=== PATIENT | female | born 1990 | race African-American/Black ===

== ENCOUNTER 2019-08-27 13:42 | Emergency (ER) | payer SELFPAY | END 2019-08-27 14:16 | disposition left against medical advice (07) | LOC: ANHED 09-22 08:49 | DX: Z53.21 Procedure and treatment not carried out due to patient leaving prior to being seen by health care provider (principal) | CPT/HCPCS: 99199; A9270 ==

== ENCOUNTER 2020-04-22 12:05 | Outpatient (CLI) | payer MEDICAID, SELFPAY ==
[2020-04-22 12:28] LABS: Basophils Absolute Auto 0.1 K/mm3 (0.0-0.1); Basophils Percent Auto 1.2 % (0.2-1.2); Eosinophils Absolute Auto 0.1 K/mm3 (0-0.3); Eosinophils Percent Auto 2.2 % (0-4.4); Hematocrit 36.3 % (37.0-47.0); Hemoglobin 12.8 g/dL (12.0-15.0); Immature Granulocyte Absolute 0.01 K/mm3 (0.00-0.031); Immature Granulocyte Percent A 0.2 % (0-0.5); Lymphocytes Absolute Auto 1.82 K/mm3 (0.9-3.2); Lymphocytes Percent Auto 44.9 % (18.3-44.2); Mean Corpuscular HGB Conc 35.3 g/dl (32-36); Mean Corpuscular Hemoglobin 32.1 pg (26-34); Monocytes Absolute Auto 0.6 K/mm3 (0.1-0.6); Monocytes Percent Auto 14.6 % (2.6-8.5); Neutrophils Absolute Auto 1.5 K/mm3 (1.3-6.7); Neutrophils Percent Auto 36.9 % (45.5-73.1); Platelet Count Result 203 k/mm3 (150-375); Red Blood Count 3.99 M/mm3 (4.2-5.4); Red Cell Distribution Width 11.5 % (11.5-14.5); White Blood Count 4.1 K/mm3 (4.5-10.0)
[2020-04-22 12:39] LABS: Alanine Aminotransferase 24 U/L (4-35); Albumin Level 4.5 g/dL (3.5-5.1); Alkaline Phosphatase 64 U/L (38-126); Anion Gap 7 mmol/L (8-16); Aspartate Amino Transferase 27 U/L (14-36); Bilirubin,Total 0.4 mg/dL (0.2-1.3); Blood Urea Nitrogen 12 mg/dL (7-17); Calcium 9.1 mg/dL (8.4-10.2); Carbon Dioxide 27 mmol/L (22-30); Chloride 104 mmol/L (98-107); Cholesterol 192 mg/dL (0-200); Estimated Glomerular Filt Rate > 60; Glucose 86 mg/dL (65-105); HDL Direct 72 mg/dL; Potassium 4.2 mmol/L (3.4-5.0); Sodium 138 mmol/L (137-145); Triglycerides 61 mg/dL (<150)
[2020-04-22 12:50] LABS: LDL Cholesterol Direct 89 mg/dL
[2020-04-22 13:09] LABS: Thyroid Stimulating Hormone 0.433 uIU/mL (0.465-4.680)
[2020-04-24 09:05] LABS: Free T4 Free Thyroxine 1.21 ng/mL (0.78-2.19)
== END 2020-04-22 12:06 | disposition home or self-care (01) ==
LOC: ANHLAB 04-24 08:20
PROVIDERS: Visit Provider Obstetrics & Gynecology
DX: Z13.29 Encounter for screening for other suspected endocrine disorder (principal); Z13.0 Encounter for screening for diseases of the blood and blood-forming organs and certain disorders involving the immune mechanism; Z13.228 Encounter for screening for other metabolic disorders; Z20.2 Contact with and (suspected) exposure to infections with a predominantly sexual mode of transmission; Z13.6 Encounter for screening for cardiovascular disorders
CPT/HCPCS: 36415; 80053; 80061; 82306; 84439; 84443; 85025

== ENCOUNTER 2021-03-09 15:09 | Emergency (ER) | payer BC, SELFPAY ==
[2021-03-09 15:20] VITALS: BP 136/94; PULSE 97; RESP 18; TEMP 36.6; O2SAT 100
--- NOTE | 2021-03-09 15:22 | ED.GENADULT ---
HPI - General Adult General Chief complaint: Upper Respiratory Infection Stated complaint: Loss of sense of smell Time Seen by Provider: 03/09/21 15:22 Source: patient Mode of arrival: ambulatory Limitations: no limitations History of Present Illness HPI narrative: 30-year-old female patient presents to the [facility] with complaints of loss of smell and dull taste that started today. Patient states she started having some congestion and runny nose and thought it was her allergies. Start taking some allergy medication. Patient is fully vaccinated last vaccine was in early January. Denies coming into contact with anybody with Covid that she is aware of. Denies fever, chest pain, shortness of breath or any severe symptoms. Related Data Allergies Allergy/AdvReac Type Severity Reaction Status Date / Time No Known Allergies Allergy Verified 03/09/21 15:20 Review of Systems Review of Systems: CONSTITUTIONAL: Denies fever, chills, or sweats. EYES: Denies visual changes, redness, or discharge. ENT: Denies rhinorrhea, congestion, sore throat, or otalgia. CARDIOVASCULAR: Denies chest pain, palpitations, or edema. RESPIRATORY: Denies cough or dyspnea. GASTROINTESTINAL: Denies abdominal pain, nausea, vomiting, or diarrhea. GENITOURINARY: Denies dysuria or hematuria. SKIN: Denies rash or itching. MUSCULOSKELETAL: Denies back pain, joint pain, or myalgia. NEUROLOGIC: Denies headache, numbness, or weakness. PSYCHIATRIC: Denies anxiety or depression. [facility] Past Medical History Medical History ASCUS of cervix with negative high risk HPV CKD (chronic kidney disease) Condyloma acuminatum HSV (herpes simplex virus) infection Type I and II Vaginal delivery x2 Surgical History Surgical History [place] teeth extracted Family History Family History Grandparent Hypertension Family history of coronary artery disease Diabetes mellitus Social History Social History Smoking status: Current every day smoker Second hand tobacco smoke exposure: No Alcohol intake: current Substance use type: marijuana Comments At the time of my signature I agree with nursing past medical history, surgical, social, and family history. There is no relevant family history pertinent to the presenting complaint. Exam Narrative: GENERAL: Well-appearing, well-nourished, and in no acute distress. HEAD: Normocephalic, atraumatic. EYES: PERRLA and EOMI. ENT: Nares clear, no rhinorrhea or epistaxis. Mucous membranes moist. Bilateral TMs are clear with no erythema or foreign bodies in the canal. Posterior pharynx no erythema, tonsillar Gayle, exudates or lesions present. NECK: Supple. No lymphadenopathy CHEST: Clear to auscultation. No respiratory distress. HEART: Regular rate and rhythm. No murmur heard. Normal peripheral pulses. ABDOMEN: Soft, nontender, nondistended, normal active bowel sounds. EXTREMITIES: Normal range of motion. No edema. SKIN: Warm, dry, no rash. NEURO: No focal deficits. Alert and oriented x3. Course Vital Signs Vital signs: Vital Signs Temperature 36.6 C 03/09/21 15:20 Pulse Rate 97 03/09/21 15:20 Respiratory Rate 18 03/09/21 15:20 Blood Pressure 136/94 H 03/09/21 15:20 Pulse Oximetry 100 03/09/21 15:20 Temperature 36.6 C 03/09/21 15:20 Pulse Rate 97 03/09/21 15:20 Respiratory Rate 18 03/09/21 15:20 Blood Pressure 136/94 H 03/09/21 15:20 Pulse Oximetry 100 03/09/21 15:20 Vital signs reviewed. The patient has been informed that they may have pre-hypertension or Hypertension based on a BP reading in the department. I recommend that the patient call the primary care provider listed on their discharge instructions or a physician of their choice this week to arrange
== END 2021-03-09 15:48 | disposition home or self-care (01) ==
PROVIDERS: Emergency Provider Nurse Practitioner Family
DX: U07.1 COVID-19 (principal)
CPT/HCPCS: 87426; 99212; C9803; G0463

== ENCOUNTER 2021-03-16 11:20 | Emergency (ER) | payer BC, SELFPAY ==
[2021-03-16 11:33] VITALS: BP 128/95; PULSE 91; RESP 18; TEMP 36.4; O2SAT 100
--- NOTE | 2021-03-16 12:06 | ED.SKABFB ---
HPI - Skin/Abscess/Foreign Bdy General Chief complaint: Skin/Abscess/Foreign Body Stated complaint: rash Source: patient Mode of arrival: ambulatory Limitations: no limitations History of Present Illness HPI narrative: Patient is a 30-year-old female who presents complaining of rash to right upper buttocks/lower back x1 day. She reports pain and burning. She denies fever, chills or other skin symptoms. Patient is Covid positive times day 10. She denies Covid related complaints at this time. MD complaint: rash Related Data Home Medications Medication Instructions Recorded Confirmed acyclovir 400 mg PO BID 03/16/21 03/16/21 Allergies Allergy/AdvReac Type Severity Reaction Status Date / Time No Known Allergies Allergy Verified 03/16/21 12:05 Review of Systems Review of Systems: CONSTITUTIONAL: Denies fever, chills, or sweats. EYES: Denies visual changes, redness, or discharge. ENT: Denies rhinorrhea, congestion, sore throat, or otalgia. CARDIOVASCULAR: Denies chest pain, palpitations, or edema. RESPIRATORY: Denies cough or dyspnea. GASTROINTESTINAL: Denies abdominal pain, nausea, vomiting, or diarrhea. GENITOURINARY: Denies dysuria or hematuria. SKIN: Rash to right lower back/ upper buttocks MUSCULOSKELETAL: Denies back pain, joint pain, or myalgia. NEUROLOGIC: Denies headache, numbness, dizziness, or weakness. PSYCHIATRIC: Denies anxiety or depression. [facility] Past Medical History Medical History ASCUS of cervix with negative high risk HPV CKD (chronic kidney disease) Condyloma acuminatum HSV (herpes simplex virus) infection Type I and II Vaginal delivery x2 Surgical History Surgical History [place] teeth extracted Family History Family History Grandparent Hypertension Family history of coronary artery disease Diabetes mellitus Social History Social History Smoking status: Current every day smoker Second hand tobacco smoke exposure: No Alcohol intake: current Substance use type: marijuana Comments At the time of signature, I have reviewed and agree with nursing past medical, surgical, social, and family history unless otherwise noted. Please see nursing chart for further information. There is no relevant family history pertinent to the presenting complaint. Exam Narrative: GENERAL: Well-appearing, well-nourished, and in no acute distress. HEAD: Normocephalic, atraumatic. EYES: EOMI. No redness or drainage. Conjunctiva are normal. ENT: Mucous membranes pink and moist. CHEST: No respiratory distress. HEART: Regular rate and rhythm. EXTREMITIES: Normal range of motion. SKIN: Area of vesiculopapular rash to right lower back/upper buttocks NEURO: No focal deficits. Alert and oriented x3. Gait steady. PSYCH: Normal affect. No signs of depression or anxiety. Course Vital Signs Vital signs: Vital Signs Temperature 36.4 C 03/16/21 11:33 Pulse Rate 91 03/16/21 11:33 Respiratory Rate 18 03/16/21 11:33 Blood Pressure 128/95 H 03/16/21 11:33 Pulse Oximetry 100 03/16/21 11:33 Temperature 36.4 C 03/16/21 11:33 Pulse Rate 91 03/16/21 11:33 Respiratory Rate 18 03/16/21 11:33 Blood Pressure 128/95 H 03/16/21 11:33 Pulse Oximetry 100 03/16/21 11:33 Reviewed MDM - Skin/Abscess/Foreign Bdy MDM Narrative Medical decision making narrative: Patient reports that she takes acyclovir daily for HSV-2 suppression. Patient appears to have herpes zoster to right lower back/upper buttocks. Discussed treatment. Discussed stopping daily acyclovir until completing 7-day dosing. Patient agrees with plan of care. Patient is stable for discharge to home with outpatient follow-up as discussed. Differential Diagnosis Differential diagnosis: Likely abscess of
== END 2021-03-16 12:21 | disposition home or self-care (01) ==
PROVIDERS: Emergency Provider Nurse Practitioner
DX: B02.9 Zoster without complications (principal); U07.1 COVID-19; N18.9 Chronic kidney disease, unspecified; F17.200 Nicotine dependence, unspecified, uncomplicated
CPT/HCPCS: 99213; G0463

== ENCOUNTER 2021-04-24 10:09 | Outpatient (CLI) | payer BC, SELFPAY ==
[2021-04-24 11:19] LABS: Hepatitis B Surface Antigen Negative (Negative)
[2021-04-24 11:31] LABS: HIV 1/2 Ab P24 Ag Result Negative (Negative)
[2021-04-24 11:36] LABS: Hepatitis C Virus Antibody Negative (Negative)
[2021-04-26 15:38] LABS: Rapid Plasma Reagin Non-Reactive (NonReactive)
== END 2021-04-24 10:10 | disposition home or self-care (01) ==
LOC: ANHLAB 10:10
PROVIDERS: Visit Provider Obstetrics & Gynecology
DX: Z20.2 Contact with and (suspected) exposure to infections with a predominantly sexual mode of transmission (principal)
CPT/HCPCS: 36415; 86592; 86703; 86803; 87340; G0432

== ENCOUNTER 2021-11-09 11:26 | Emergency (ER) | payer BC, SELFPAY ==
[2021-11-09 11:35] VITALS: BP 124/84; PULSE 83; RESP 18; TEMP 36.6; O2SAT 100
--- NOTE | 2021-11-09 12:02 | ED.URI ---
HPI - URI/Sore Throat General Chief Complaint: Upper Respiratory Infection Stated Complaint: nasal congestion,cough Time Seen by Provider: 11/09/21 12:03 Source: patient and RN notes reviewed Mode of arrival: ambulatory Limitations: no limitations History of Present Illness HPI Narrative: 30-year-old female presents with concern for 3-day history of nasal congestion, sinus pressure, headache, loss of taste. Reports she took a at home COVID test on Wednesday that was negative. She is concerned she could have COVID. She reports she has been taking TheraFlu which temporarily relieves her symptoms. She denies shortness of breath, fever, nausea, vomiting, diarrhea MD elicited complaint: cough and sore throat Related Data Home Medications Medication Instructions Recorded Confirmed acyclovir 400 mg PO BID 11/09/21 11/09/21 Allergies Allergy/AdvReac Type Severity Reaction Status Date / Time No Known Allergies Allergy Verified 11/09/21 11:47 Review of Systems Review of Systems: CONSTITUTIONAL: Reports malaise, loss of taste and smell. Denies chills, sweats, or fever. EYES: Denies visual changes, redness, or discharge. ENT: Reports rhinorrhea, congestion, sinus pain. Denies otalgia and sore throat. CARDIOVASCULAR: Denies chest pain, palpitations, or edema. RESPIRATORY: Reports cough. Denies dyspnea. GASTROINTESTINAL: Denies abdominal pain, nausea, vomiting, diarrhea SKIN: Denies rash or itching. MUSCULOSKELETAL: Denies myalgia. NEUROLOGIC: Reports headache. All systems reviewed & are unremarkable except as noted in HPI and below PMFSH Past Medical History Medical History ASCUS of cervix with negative high risk HPV CKD (chronic kidney disease) Condyloma acuminatum HSV (herpes simplex virus) infection Type I and II Mixed incontinence Vaginal delivery x2 Surgical History Surgical History Tubal ligation status [place] teeth extracted Family History Family History Grandparent Hypertension Family history of coronary artery disease Diabetes mellitus Social History Social History Smoking status: Former smoker Second hand tobacco smoke exposure: No Alcohol intake: current Substance use type: marijuana Comments At time of signature, agree with nursing past medical, surgical, social and family history. There is no relevant family history pertinent to the presenting complaint Exam Narrative: GENERAL: Nontoxic-appearing and in no acute distress. HEAD: Normocephalic EYES: PERRLA, conjunctivae clear ENT: Nares clear, turbinates edematous and erythematous, clear discharge. Mucous membranes moist. TM pearly castro with sharp light reflex bilaterally; no tragal tenderness. Oropharynx not erythematous without lesions. Tonsils not enlarged and without exudate, no drooling, no hoarseness, no trismus, uvula midline. NECK: Supple. No lymphadenopathy CHEST: Clear to auscultation, breath sounds equal. No wheezing, rhonchi, rales, or stridor. No respiratory distress, speaks in full sentences. HEART: Regular rate and rhythm. No murmur heard. SKIN: Warm, dry, no rash. NEURO: Alert and oriented x3. PSYCH: Normal mood and affect Course Course Emergency Course: Patient is aware of diagnosis, understands and agrees to treatment plan. Anticipatory guidance given. Patient agrees to follow-up as directed and is aware of reasons to seek care at the emergency department. Portions of this record may have been created with voice recognition software Level of Care: Express Care Visit Vital Signs Vital signs: Vital Signs Temperature 97.8 F 11/09/21 11:35 Pulse Rate 83 11/09/21 11:35 Respiratory Rate 18 11/09/21 11:35 Blood Pressure 124/84 11/09/21 11:35 Pulse Oximetry 100 11/09/21
== END 2021-11-09 12:24 | disposition home or self-care (01) ==
PROVIDERS: Emergency Provider Nurse Practitioner
DX: J06.9 Acute upper respiratory infection, unspecified (principal); Z20.822 Contact with and (suspected) exposure to COVID-19; Z87.891 Personal history of nicotine dependence
CPT/HCPCS: 87426; 87804; 99213; C9803; G0463

== ENCOUNTER 2023-03-30 09:32 | Emergency (ER) | payer BC, SELFPAY ==
[2023-03-30 09:55] VITALS: BP 95/74; PULSE 90; RESP 16; TEMP 36.3; O2SAT 100
--- NOTE | 2023-03-30 10:06 | ED_ITS ---
HPI - Animal Bite General Chief Complaint: Animal Bite Stated Complaint: dog bite Time Seen by Provider: 03/30/23 10:07 Related Data Allergies Allergy/AdvReac Type Severity Reaction Status Date / Time No Known Allergies Allergy Verified 11/13/21 12:54 [facility] Past Medical History Medical History ASCUS of cervix with negative high risk HPV CKD (chronic kidney disease) Condyloma acuminatum HSV (herpes simplex virus) infection Type I and II Mixed incontinence Vaginal delivery x2 Surgical History Surgical History Tubal ligation status [place] teeth extracted Family History Family History Grandparent Hypertension Family history of coronary artery disease Diabetes mellitus Social History Social History Smoking status: Never smoker Second hand tobacco smoke exposure: No Alcohol intake: current Substance use type: marijuana Course Course Level of Care: Express Care Visit Vital Signs Vital signs: Vital Signs Temperature 97.3 F L 03/30/23 09:55 Pulse Rate 90 03/30/23 09:55 Respiratory Rate 16 03/30/23 09:55 Blood Pressure 95/74 L 03/30/23 09:55 Pulse Oximetry 100 03/30/23 09:55 Oxygen Delivery Room Air 03/30/23 09:55 Temperature 97.3 F L 03/30/23 09:55 Pulse Rate 90 03/30/23 09:55 Respiratory Rate 16 03/30/23 09:55 Blood Pressure 95/74 L 03/30/23 09:55 Pulse Oximetry 100 03/30/23 09:55 Oxygen Delivery Room Air 03/30/23 09:55 Discharge Plan Discharge Clinical Impression: Dog bite Patient Disposition: Home, Self-Care Condition: Stable Instructions: Antibiotic Form, Animal Bite (ED) Additional Instructions: Keep the area clean and dry - cleanse with warm water and mild soap and allow to fully dry. Ok to apply neosporin to the site Keep it open to air Apply ice or cool compresses as needed Take antibiotic as directed Watch for worsening symptoms including pain, redness, swelling, streaking, pus/drainage, fever. Go to the ER with any of these symptoms or concerns. Follow up with primary care provider in 1 week as needed. Prescriptions: New amoxicillin-pot clavulanate 875-125 mg tablet 1 tablet PO Q12H 7 Days Qty: 14 0RF Follow-up/Referrals: PHYSICIAN,HARDBOARD GRINDER [Primary Care Provider] - Time of Disposition: 10:15
--- NOTE | 2023-03-30 10:18 | ED.ANIMALBIT ---
HPI - Animal Bite General Chief Complaint: Animal Bite Stated Complaint: dog bite Time Seen by Provider: 03/30/23 10:07 Source: patient Mode of arrival: ambulatory Limitations: no limitations History of Present Illness HPI narrative: 32-year-old female presented for complaint of dog bite to the back of the right leg, sustained yesterday. States she was walking in her neighborhood when a large black dog was playing with another dog, ran towards her, jumped on her and bit the back of the leg. Pt does not know the dog or owners. She contacted the police. Patient cleansed site with hydrogen peroxide. Denies bleeding or open wounds. Reports tenderness surrounding the sites and tenderness to the left thigh. Denies numbness, tingling or weakness. Related Data Allergies Allergy/AdvReac Type Severity Reaction Status Date / Time No Known Allergies Allergy Verified 11/13/21 12:54 Review of Systems Review of Systems: CONSTITUTIONAL: Denies body aches, fever, chills, or sweats. EYES: Denies visual changes, redness, or discharge. ENT: Denies rhinorrhea, congestion CARDIOVASCULAR: Denies chest pain, palpitations, or edema. RESPIRATORY: Denies cough or dyspnea. GASTROINTESTINAL: Denies abdominal pain, nausea, vomiting, or diarrhea. SKIN: reports puncture sites to left thigh MUSCULOSKELETAL: Denies back pain, joint pain, or myalgia. NEUROLOGIC: Denies headache, numbness, tingling, or weakness. [facility] Past Medical History Medical History ASCUS of cervix with negative high risk HPV CKD (chronic kidney disease) Condyloma acuminatum HSV (herpes simplex virus) infection Type I and II Mixed incontinence Vaginal delivery x2 Surgical History Surgical History Tubal ligation status [place] teeth extracted Family History Family History Grandparent Hypertension Family history of coronary artery disease Diabetes mellitus Social History Social History Smoking status: Never smoker Second hand tobacco smoke exposure: No Alcohol intake: current Substance use type: marijuana Comments At time of signature, I have reviewed and agree with nursing past medical, surgical, social and family history unless otherwise noted. Please see nursing chart for further information. There is no relevant family history pertinent to the presenting complaint Exam Narrative: GENERAL: Well-appearing HEAD: Normocephalic, atraumatic. EYES: conjunctivae clear, and EOMI. ENT: Mucous membranes moist. Oropharynx without edema, erythema or lesions. NECK: Supple. No lymphadenopathy CHEST: Clear to auscultation. HEART: Regular rate and rhythm. SKIN: Warm, dry. Left posterior upper thigh with superficial closed abrasions x2 measuring approx 2mm and 3mm; mild surrounding erythema and tenderness, no active drainage induration or fluctuance. No signs of infection. Full ROM to LLE. NEURO: Alert and oriented x3. Course Course Emergency Course: Patient is aware of diagnosis, understands and agrees to treatment plan. Anticipatory guidance given. Patient agrees to follow-up as directed and is aware of reasons to seek care at the emergency department. Portions of this record may have been created with voice recognition software Level of Care: Express Care Visit Vital Signs Vital signs: Vital Signs Temperature 97.3 F L 03/30/23 09:55 Pulse Rate 90 03/30/23 09:55 Respiratory Rate 16 03/30/23 09:55 Blood Pressure 95/74 L 03/30/23 09:55 Pulse Oximetry 100 03/30/23 09:55 Oxygen Delivery Room Air 03/30/23 09:55 Temperature 97.3 F L 03/30/23 09:55 Pulse Rate 90 03/30/23 09:55 Respiratory Rate 16 03/30/23 09:55 Blood Pressure 95/74 L 03/30/23 09:55 Pulse Oximetry 100 03/30/23 09:55 Oxygen
== END 2023-03-30 10:25 | disposition home or self-care (01) ==
PROVIDERS: Emergency Provider Nurse Practitioner Family
DX: S81.851A Open bite, right lower leg, initial encounter (principal); N18.9 Chronic kidney disease, unspecified; W54.0XXA Bitten by dog, initial encounter
CPT/HCPCS: 99213; G0463

== ENCOUNTER 2023-04-10 08:07 | Emergency (ER) | payer BC, SELFPAY ==
[2023-04-10 08:14] VITALS: BP 136/106; PULSE 82; RESP 18; TEMP 37.2; O2SAT 100
[2023-04-10 08:19] VITALS: BP 136/106; PULSE 97; RESP 24; O2SAT 100
[2023-04-10 09:40] LABS: Appearance Urine Cloudy (Clear); Bilirubin Urine Negative (Negative); Blood Urine Trace-intact (Negative); Color Urine Yellow (Yellow); Glucose Urine UA Negative (Negative); Ketones Urine 2+ mg/dL (Negative); Leukocyte Esterase Ur 1+ LEU/UL (Negative); Nitrate Urine Negative (Negative); Protein Urine Negative (Negative); Specific Grav Ur >= 1.030 (1.001-1.035); Urobilinogen Urine 0.2 mg/dL (<2.0); pH Urine 5.5 (5.0-9.0)
[2023-04-10 09:45] LABS: Add Urine Microscopic? YES
[2023-04-10 09:53] LABS: Bacteria Urine 2+ /hpf; Mucus Urine Present /lpf; RBC Urine 0-2 /hpf (0-2); Squamous Epithelial Cell Urine Many /hpf (Few); WBC Urine 0-5 /hpf
--- NOTE | 2023-04-10 10:05 | ED.FEMALEGU ---
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 Reports history of genital herpes. Reports she has had a outbreak over the last couple of days. Also reports she has been experiencing sweats. Reports she believes she may have a yeast infection as she was recently on antibiotics after a dog bite. Denies fever, vomiting or flank pain. Related Data Allergies Allergy/AdvReac Type Severity Reaction Status Date / Time No Known Allergies Allergy Verified 04/10/23 08:19 Review of Systems Review of Systems: CONSTITUTIONAL: Reports sweats. Denies fever GASTROINTESTINAL: Denies abdominal pain, nausea, vomiting GENITOURINARY: Reports dysuria SKIN: Reports rash and itching. All systems reviewed & are unremarkable except as noted in HPI and below PMFSH Past Medical History Medical History ASCUS of cervix with negative high risk HPV CKD (chronic kidney disease) Condyloma acuminatum HSV (herpes simplex virus) infection Type I and II Mixed incontinence Vaginal delivery x2 Surgical History Surgical History Tubal ligation status [place] teeth extracted Family History Family History Grandparent Hypertension Family history of coronary artery disease Diabetes mellitus Social History Social History Smoking status: Never smoker Second hand tobacco smoke exposure: No Alcohol intake: current Substance use type: marijuana Exam Narrative: GENERAL: Well-appearing, well-nourished, and in no acute distress. HEAD: Normocephalic, atraumatic. EYES: EOMI. CHEST: Clear to auscultation. No respiratory distress. No wheezes rales or rhonchi HEART: Regular rate and rhythm. No murmur heard. Normal peripheral pulses. ABDOMEN: Soft, nontender, nondistended, normal active bowel sounds. No CVA tenderness EXTREMITIES: Normal range of motion. No edema. SKIN: Warm, dry, no rash. NEURO: No focal deficits. Alert and oriented x3. PSYCH: Normal mood and affect PELVIC: Ulcerating lesions and vesicles present in the labia. Moderate amount of white vaginal/cervical discharge. No CMT Course Course Emergency Course: Patient updated on work-up and agrees with plan of care Vital Signs Vital signs: Vital Signs Temperature 98.9 F 04/10/23 08:14 Pulse Rate 82 04/10/23 08:14 Respiratory Rate 18 04/10/23 08:14 Blood Pressure 136/106 H 04/10/23 08:14 Pulse Oximetry 100 04/10/23 08:14 Oxygen Delivery Room Air 04/10/23 08:14 Temperature 98.9 F 04/10/23 08:14 Pulse Rate 91 04/10/23 11:46 Respiratory Rate 18 04/10/23 11:46 Blood Pressure 147/92 H 04/10/23 11:46 Pulse Oximetry 100 04/10/23 11:46 Oxygen Delivery Room Air 04/10/23 08:14 MDM - Female Genitourinary MDM Narrative Medical decision making narrative: Patient presents to the emergency department for HSV outbreak. Reports history of this. Reports she recently has not been on her suppressive medication. Reporting some constitutional symptoms with sweats. Exam is consistent with likely HSV infection. She also does have moderate amount of white discharge. Reports recently being on an antibiotic. Will be treated with dose of fluconazole for vulvovaginal candidiasis. Also treated for HSV infection with Valtrex. Chlamydia, gonorrhea, and trichomonas were negative. General genital culture and HSV swab sent. UA without white blood cells. Does show 1+ leuk esterase and 2+ bacteria, but also many squamous epithelial cells. CBC and metabolic panel without concerning
[2023-04-10 10:25] LABS: Basophils Percent Auto 0.8 % (0.2-1.2); Eosinophils Percent Auto 0.6 % (0-4.4); Hematocrit 37.7 % (37.0-47.0); Hemoglobin 12.4 g/dL (12.0-15.0); Immature Granulocyte Absolute 0.02 K/mm3 (0.00-0.031); Immature Granulocyte Percent A 0.4 % (0-0.5); Lymphocytes Absolute Auto 1.28 K/mm3 (0.9-3.2); Lymphocytes Percent Auto 26.3 % (18.3-44.2); Mean Corpuscular HGB Conc 32.9 g/dl (32-36); Mean Corpuscular Volume 91.3 fl (80-100); Mean Platelet Volume 10.1 fl (7.4-10.4); Monocytes Absolute Auto 0.5 K/mm3 (0.1-0.6); Monocytes Percent Auto 10.1 % (2.6-8.5); Neutrophils Percent Auto 61.8 % (45.5-73.1); Platelet Count Result 280 k/mm3 (150-375); Red Blood Count 4.13 M/mm3 (4.2-5.4); Red Cell Distribution Width 12.1 % (11.5-14.5); White Blood Count 4.9 K/mm3 (4.5-10.0)
[2023-04-10 10:35] LABS: Alanine Aminotransferase 19 U/L (6-35); Albumin Level 4.5 g/dL (3.5-5.1); Alkaline Phosphatase 88 U/L (38-126); Anion Gap 10 mmol/L (8-16); Aspartate Amino Transferase 27 U/L (14-36); Bilirubin,Total 0.7 mg/dL (0.2-1.3); Blood Urea Nitrogen 9 mg/dL (7-17); Carbon Dioxide 24 mmol/L (22-30); Chloride 102 mmol/L (98-107); Estimated CRCL calculation 154 ml/min; Estimated Glomerular Filt Rate > 60; Glucose 105 mg/dL (65-110); Potassium 3.6 mmol/L (3.4-5.0); Sodium 136 mmol/L (137-145)
[2023-04-10 11:34] LABS: Thyroid Stimulating Hormone Reflex 0.362 uIU/mL (0.465-4.68)
[2023-04-10 11:46] VITALS: BP 147/92; PULSE 91; RESP 18; O2SAT 100
[2023-04-10 11:51] LABS: Trichomonas Vag PCR NOT DETECTED (NOT DETECTE)
[2023-04-10] MEDS: valACYclovir HCL 500 MG TABLET 1000 MG PO (11:54)
[2023-04-10 12:13] LABS: Chlamydia trachomatis NOT DETECTED (NOT DETECTE); Neisseria gonorrhoeae PCR NOT DETECTED (NOT DETECTE)
[2023-04-10 12:25] LABS: Free T4 Free Thyroxine Reflex 1.95 ng/dL (0.78-2.19)
[2023-04-10] MEDS: FLUCONAZOLE 150 MG TABLET PO (12:59)
[2023-04-10 13:20] LABS: Total Triiodothyronine (T3) 1.23 NG/ML (0.97-1.69)
== END 2023-04-10 13:28 | disposition home or self-care (01) ==
PROVIDERS: Emergency Provider Physician Assistant
DX: B37.31 Acute candidiasis of vulva and vagina (principal); A60.04 Herpesviral vulvovaginitis; N18.9 Chronic kidney disease, unspecified; N39.46 Mixed incontinence
CPT/HCPCS: 36415; 80053; 81001; 81025; 84439; 84443; 84480; 85025; 87070; 87255; 87491; 87591; 87661; 99284; A9270

== ENCOUNTER 2024-08-01 19:52 | Emergency (ER) | payer OTHER, SELFPAY ==
--- OUTSIDE RECORDS SUMMARY | 2024-08-01 19:54 | XMS_ITS | Clinical Summary ---
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 Active HYDROcodone-acet aminophen (NORCO) 5-325 MG tabletIndication s:Acute Pain < 7 Day Supply Take 1 tablet by mouth every 4 (four) hours as needed for Pain. Indications : Acute Pain < 7 Day Supply 24 tablet 02/26/2022 Active Social History Tobacco Use Types Packs/Day Years Used Date Smoking Tobacco: Never Smokeless Tobacco: Never Alcohol Use Standard Drinks/Week Comments Not Currently 0 (1 standard drink = 0.6 oz pur e alcohol) Comments No Sex and Gender Information Value Date Recorded Sex Assigned at Not on file Legal Sex Female 7:16 PM CDT Gender Identity Not on file Sexual Orientation Not on file Last Filed Vital Signs Vital Sign Reading Time Taken Comments Blood Pressure 142/89 02/26/2022 12:30 PM CDT Pulse 78 02/26/2022 12:30 PM CDT Temperature 36.3 ??C (97.4 ??F) 02/26/2022 1 2:30 PM CDT Respiratory Rate 18 02/26/2022 12:3 0 PM CDT Oxygen Saturation 97% 02/26/2022 12: 30 PM CDT Inhaled Oxygen Concentration - - Weight 120.8 kg (266 lb 5.1 oz) 02/26/2022 7:30 AM CDT Height 170.2 cm (5' 7 ) 02/26/2022 7:30 AM CDT Body Mass Index 41.71 02/26/2022 7:30 AM CDT Plan of Treatment Health Maintenance Due Date Last Done Comments Cervical Cancer Screening Pap Smear (Age 30 to 64) Every 3 Years 1989 Annual Physical 1992 Hepatitis C 12/25/2007 Cervical Cancer Screening Pap with HPV Testing (Age 30 to 64) Every 5 Years 12/25/2019 Cervical Cancer Screening with HPV 12/25/2019 COVID-19 Vaccine (3 season) 2024 02/11/2021, 01/21/2021 Influenza Adult (#1) 2024 03/28/2013 DTaP, Tdap and Td Vaccines (8 - Td or Tdap) 01/18/2026 01/19/2016, 03/28/2013, 02/04/2002, Additional history exists Hepatitis B Vaccines Completed 02/13/1997, 02/07/1996, 09/01/1995 HPV Vaccines Aged Out No longer eligi ble based on patient's age to complete this topic Meningococcal B Vaccine Aged Out No l onger eligible based on patient's age to complete this topic Meningococcal Vaccine Aged Out No carla alexandro eligible based on patient's age to complete this topic Pneumococcal Vaccine: Pediatrics (0 to 5 Years) and At-Risk Patients (6 to 64 Years) Aged Out No longer eligible based on patient's age to complete this topic RSV Immunizations Under 20 Months Aged Out No longer eligible based on patient's age to complete this topic Medical Devices Implanted Type Area Central Scheduler Device Identifier Shelf Expiration Date Model / Serial / Lot Sling Obtryx Halo - [id number] Implanted:Qty : 1 on 02/26/2022 by Rosalio Montes De Oca MD at [facility] N/A: [facility] [employer] [id number] 08/03/2024 [id number] Insurance [facility] Care Teams Plant And Maintenance Technician Relationship Specialty Start Date End Date None, Provider, PCP - General 02/26/22
--- OUTSIDE RECORDS SUMMARY | 2024-08-01 19:54 | XMS_ITS | Clinical Summary ---
Author Organization [facility] Address [address] [place] [address] Phone Care Team Providers Care Admissions Dean Name Role Phone Calixto Rodarte MD Primary Care Provider [phone] Social History Tobacco Use Types Packs/Day Years Used Date Smoking Tobacco: Never Assessed Comments Unknown Sex and Gender Information Value Date Recorded Sex Assigned at Not on file Legal Sex Female 9:02 AM CDT Gender Identity Not on file Sexual Orientation Not on file Plan of Treatment Health Maintenance Due Date Last Done Comments DTAP/TDAP/TD VACCINES (1 - Tdap) 2008 HEPATITIS B VACCINES (1 of 3 - 19+ 3-dose series) 2008 CERVICAL CANCER SCREENING 12/25/2019 INFLUENZA VACCINE (#1) 2024 HPV VACCINES Aged Out No longer eligi ble based on patient's age to complete this topic PNEUMOCOCCAL VACCINE 0-64 YEARS Aged Out No longer eligible based on patient's age to complete this topic Care Teams Admissions Dean Relationship Specialty Start Date End Date Calixto Rodarte MD PCP - General Family Practice 09/17/15
--- OUTSIDE RECORDS SUMMARY | 2024-08-01 19:54 | XMS_ITS | Continuity of Care Document ---
Author Organization [facility] Address [address] [place] [address] Phone Care Team Providers Care Promotional Representative Name Role Phone Unavailable Unavailable Unavailable Advance Directives Directive Yes / No Effective Date File Name No Information Encounters Encounter Description Practice Location Reason(s) For Visit Diagnoses Date Provider Providers Copied on Encounter [facility], [address] [facility] [place], [place], [place], [id number], tel:[phone] [facility] No Information No Information Referring Provider: JOHANN WHITE, [address] [place] [address],[place], [address]. tel:[phone] Family History Family Member Type Diagnosis Age At Onset No Information Payers Payer name Insurance type Covered democrat ID Authoriza tiradha(s) [id number] [facility] [place] [facility] [place] [id number] CI [id number] Social History Type Description Quantity Date Captured Comments Sex Female Smoking Status No Information Chief Complaint And Reason For Visit No Information History Of Present Illness Encounter Date Complaint History Of Prese nt Illness No Information Instructions Date Instruction Additional Infor mation No Information Assessments Type Assessment Date No Information
--- OUTSIDE RECORDS SUMMARY | 2024-08-01 19:55 | XMS_ITS | Continuity of Care Document ---
Author Organization [facility] Address [address] [facility] [place] [address] Phone Care Team Providers Care Press Operator Name Role Phone Calixto Rodarte MD Unavailable Unavailable Allergies, Adverse Reactions, Alerts Substance Reaction Status Criticality No Known Allergies Active No Inform ation Medications Medication Instructions Dosage Effective Dates (start - stop) Status Comments Vistaril 50 mg capsule take 1 capsule by oral route every bedtime 50 MG - Active PRN for insomnia Procedures Procedure Date PREV VISIT, [facility], AGE 18-39 Advance Directives Directive Yes / No Effective Date File Name No Information Encounters Encounter Description Practice Location Reason(s) For Visit Diagnoses Date Provider Providers Copied on Encounter PREV VISIT, NEW, AGE 18-39 [facility], [address] [place], [place], [id number], tel:[phone] [facility] Physical (chief complaint) Dietary surveillance and counselingRoutine Medical ExamRoutine Medical Exam [id number] [place], [place], [id number] , [place]. tel:[phone] Family History Family Member Type Diagnosis Age At Onset Sister Problem (finding) Alive and well Father Problem (finding) Alive and well Mother Problem (finding) Alive and well Payers Payer name Insurance type Covered green party ID Authoriza tion(s) No Information Social History Type Description Quantity Date Captured Comments Alcohol Use Details Caffeine Use Details Unknown Tobacco Use Status No Information Smoking Status Never smoker Non-Smoking Tobacco Use Details : No Details Available : No Details Available Sex Female Vital Signs Date / Time: Height Weight BMI Pulse Rate Blood Pressure Temperature Respiratory Rate Body Surface Area Head Circumference BMI percentile Pulse Ox Inhaled Ox 5:26 PM 67.00 in 229.00 lbs 35.8 6 kg/m eter (2) 84 /min 124/85 mm[Hg] 97.8 F 16 /min Chief Complaint And Reason For Visit From encounter dated '11/01/2014 17:26'. Physical (chief complaint) Plan Of Treatment Date Type Action Status No Information History Of Present Illness Encounter Date Complaint History Of Prese nt Illness No Information Instructions Date Instruction Additional Infor mation Physical activity counseling Rel ated to Dietary surveillance counseling Decrease caloric intake Related to Dietary surveillance counseling Assessments Type Assessment Date No Information Mental Status Date Cognitive Assessment Orientation - [place] ed to time, place, person, situation.
--- OUTSIDE RECORDS SUMMARY | 2024-08-01 19:55 | XMS_ITS | Continuity of Care Document ---
Author Organization [facility] Address [address] [place] [address] Phone Care Team Providers Care Receiver Dispatcher Name Role Phone Unavailable Unavailable Unavailable Advance Directives Directive Yes / No Effective Date File Name No Information Encounters Encounter Description Practice Location Reason(s) For Visit Diagnoses Date Provider Providers Copied on Encounter [facility], [address] [facility], [place], [place], [id number], tel:[phone] [facility] No Information No Information Referring Provider: JOHANN WHITE, [address] [place] [address],[place], [address]. tel:[phone] Family History Family Member Type Diagnosis Age At Onset No Information Payers Payer name Insurance type Covered democrat ID Authoriza tiradha(s) [employer] [facility] PLAN INC [facility] [place] [id number] CI [id number] Social History Type Description Quantity Date Captured Comments Sex Female Smoking Status No Information Chief Complaint And Reason For Visit No Information History Of Present Illness Encounter Date Complaint History Of Prese nt Illness No Information Instructions Date Instruction Additional Infor mation No Information Assessments Type Assessment Date No Information
--- OUTSIDE RECORDS SUMMARY | 2024-08-01 19:55 | XMS_ITS | Continuity of Care Document ---
Author Organization [facility] Address [address] [facility] [place] [address] Phone Care Team Providers Care Width Stripper Name Role Phone Calixto Rodarte MD Unavailable Unavailable Allergies, Adverse Reactions, Alerts Substance Reaction Status Criticality No Known Allergies Active No Inform ation Medications Medication Instructions Dosage Effective Dates (start - stop) Status Comments Vistaril 50 mg capsule take 1 capsule by oral route every bedtime 50 MG - Active PRN for insomnia Procedures Procedure Date PREV VISIT, [facility], AGE 18-39 Advance Directives Directive Yes / No Effective Date File Name No Information Encounters Encounter Description Practice Location Reason(s) For Visit Diagnoses Date Provider Providers Copied on Encounter PREV VISIT, NEW, AGE 18-39 [facility], [address] [place], [place], [id number], tel:[phone] [facility] Physical (chief complaint) Dietary surveillance and counselingRoutine Medical ExamRoutine Medical Exam [address] [place], [place], [id number] , [place]. tel:[phone] Family History Family Member Type Diagnosis Age At Onset Sister Problem (finding) Alive and well Father Problem (finding) Alive and well Mother Problem (finding) Alive and well Payers Payer name Insurance type Covered alliance party ID Authoriza tion(s) No Information Social [...] Mental Status Date Cognitive Assessment Orientation - [place] ed to time, place, person, situation.
--- NOTE | 2024-08-01 19:56 | ED_ITS ---
HPI - URI/Sore Throat General Chief Complaint: Upper Respiratory Infection Stated Complaint: congestion Time Seen by Provider: 08/01/24 20:19 Patient presents with complaints of nasal congestion and drainage that started today. She reports that her player requested that she come get checked for COVID in flu. She denies any fever. She has not taken any medication for her symptoms. She is not in any distress Source: patient, RN notes reviewed and old records reviewed Mode of arrival: ambulatory Limitations: no limitations Related Data Allergies Allergy/AdvReac Type Severity Reaction Status Date / Time No Known Allergies Allergy Verified 08/04/23 11:47 Review of Systems Review of Systems: All systems reviewed & are unremarkable except as noted in HPI and below Constitutional: Constitutional: Reports no additional constitutional complaints ENT: Reports system reviewed and no additional complaints, except as documented, Reports nasal congestion and Reports nasal discharge Cardiovascular: Cardiovascular: Reports no additional cardiovascular complaints Respiratory: Respiratory: Reports no additional respiratory complaints Gastrointestinal: Gastrointestinal: Reports no additional gastrointestinal complaints PMF Past Medical History Medical History (Updated 08/02/24 @ 00:02 by Cathleen Hollins) Vitamin D deficiency Excessive sweating Morbid obesity with BMI of 40.0-44.9, adult Low TSH level Mixed incontinence Vaginal delivery x2 HSV (herpes simplex virus) infection Type I and II Condyloma acuminatum CKD (chronic kidney disease) ASCUS of cervix with negative high risk HPV Surgical History Surgical History Tubal ligation status [place] teeth extracted Family History Family History Grandparent Hypertension Family history of coronary artery disease Diabetes mellitus Social History Social History (Updated 12/14/23 @ 13:27 by Miracle Garcia MA) Smoking status: Never smoker Second hand tobacco smoke exposure: No Alcohol intake: current Drinks per week: 7 Alcohol use details: pollo Substance use: never Substance use type: marijuana Do You Feel Safe in your Home?: Yes Lack of Transportation: No Lack of Food: Never True Current Housing: I Have Housing Concerned About Future Housing: No Difficulty Paying Gas/Electric Bills: No Difficulty Paying for Meds: No Currently Unemployed: No Education: Associate Degree Difficulty w/ Childcare or Family Care: No Comments At the time of my signature, I reviewed and agree with the nursing past medical, surgical, social, and family history. There is no relevant family history pertinent to the patient complaint. Exam Const: General: cooperative, no acute distress, alert and awake Orientation/consciousness: oriented to person, oriented to place and oriented to time HENMT: Head: normal to inspection Ears: TM's normal bilaterally Mouth: Yes oropharynx normal and Yes moist mucous membranes Resp: Effort & Inspection: normal respiratory effort and able to speak in complete sentences Auscultation: clear to auscultation bilaterally, no crackles, no rales, no rhonchi and no wheezes Cardio: Palpation: normal PMI Rate: regular rate Rhythm: regular rhythm Heart sounds: S1 normal heart sound present and S2 normal heart sound present Neuro: General: oriented to person, oriented to place and oriented to time Cranial nerves: Yes CN's II-XII intact bilaterally Psych: Appearance: grossly normal Thought process: Normal thought process present Insight: Good insight present (Psych) Judgement: Good judgement present (Psych) Course Course Level of Care: Express Care Visit Vital Signs Vital signs: Vital Signs Temperature 97.3 F L 08/01/24 20:11 Pulse Rate 86 08/01/24 20:11 Respiratory Rate 18 08/01/24 20:11 Blood Pressure 136/77 08/01/24 20:11 Pulse Oximetry 100 08/01/24 20:11 Oxygen Delivery Room Air 08/01/24 20:11 Temperature 97.3 F L 08/01/24 20:11 Pulse Rate 86 08/01/24 20:11 Respiratory Rate 18 08/01/24 20:11 Blood Pressure 136/77 08/01/24 20:11 Pulse Oximetry 100 08/01/24 20:11 Oxygen Delivery Room Air 08/01/24 20:11 Reviewed MDM - URI/Sore Throat MDM Narrative Medical decision making narrative: Patient in no distress, nontoxic appearing. Negative COVID, negative flu. Counseled patient that symptoms been present for just a few hours, quite likely that COVID and flu would not be picked up on testing just yet. She verbalizes understanding. Supportive care measures discussed. Discharge instructions reviewed with patient, as well as provided in writing per nursing staff. The instructions also include specific and strict return/GO TO THE ER as well as f/u information. All questions have been answered, and the patient deny any further questions with discharge and discharge plan. Some parts of this dictation were generated by voice recognition software and may contain typographical and/or grammatical inaccuracies. Differential Diagnosis Differential diagnosis: Likely upper respiratory infection, otitis media, sinusitis, viral infection and influenza Medical Records Attestation: I reviewed the patient's medical records. Lab Data Attestation: I reviewed the patient's lab results. Labs: Lab Results 08/01/24 Range/Units 20:25 POC Influenza A Ag Negative (Negative) POC Influenza B Ag Negative (Negative) POC SARS CoV-2 Ag Negative (Negative) Discharge Plan Discharge Clinical Impression: Upper respiratory infection Patient Disposition: Home, Self-Care Condition: Stable Instructions: Antibiotic Form, Viral Syndrome (ED) Additional Instructions: follow-up with primary care provider. Emergency department for any new or worsening symptoms Patient Language: Croatian Prescriptions: No Action acyclovir 200 mg capsule 400 mg PO BID Qty: 120 1RF Rx Instructions: take one capsule by mouth five times daily for 5 days for outbreak then take two caps daily every 12 hours for suppression Follow-up/Referrals: Breana Shelby NP [Primary Care Provider] - 2 Weeks Stand Alone Forms: Work/School Release IP Time of Disposition: 20:28
[2024-08-01 20:11] VITALS: BP 136/77; PULSE 86; RESP 18; TEMP 36.3; O2SAT 100
[2024-08-01 20:27] LABS: EDCOVIDSCREEN Negative (Negative); EDINFLUASCREEN Negative (Negative); EDINFLUBSCREEN Negative (Negative)
== END 2024-08-01 20:30 | disposition home or self-care (01) ==
PROVIDERS: Emergency Provider Nurse Practitioner Family; PCP Nurse Practitioner Family
DX: J06.9 Acute upper respiratory infection, unspecified (principal); Z20.822 Contact with and (suspected) exposure to COVID-19; E66.01 Morbid (severe) obesity due to excess calories; Z68.41 Body mass index [BMI] 40.0-44.9, adult
CPT/HCPCS: 87426; 87804; 99212; G0463